=== PATIENT | male | born 1945 | race Caucasian/White ===

== ENCOUNTER 2016-06-02 19:32 | Inpatient (IN) | payer MEDICARE, OTHER ==
[~2016-06-02] VITALS: Ht 185.4 cm; Wt 79.8 kg
--- NOTE | 2016-06-02 20:20 | NUR ---
Pt brought to bed 5b via private ambulance, dr roca at bedside for exam.
--- NOTE | 2016-06-02 20:21 | NUR ---
pt cleared and ready for transfer to u, floor not ready at this time.
[2016-06-02] MEDS ORDERED: ACETAMINOPHEN 325 MG TABLET PO PRN (21:30)
[2016-06-02] MEDS ORDERED: MAG HYDROX/AL HYDROX/SIMETH 30 ML LIQUID UDC PO PRN (21:30)
[2016-06-02] MEDS ORDERED: CLONAZEPAM 0.5 MG TABLET PO SCH (21:30)
[2016-06-02] MEDS ORDERED: TEMAZEPAM 7.5 MG CAPSULE PO PRN (21:30)
[2016-06-02] MEDS ORDERED: MAGNESIUM HYDROXIDE 30 ML LIQUID UDC PO PRN (21:30)
[2016-06-02 21:40] VITALS: BP 170/98
[2016-06-02] MEDS ORDERED: CLONAZEPAM 0.5 MG TABLET ONE (21:45)
[2016-06-02 22:07] VITALS: BP 155/91
--- NOTE | 2016-06-02 23:28 | NUR ---
appears to be asleep. no distress noted.
--- NOTE | 2016-06-02 23:28 | NUR ---
received to care, on a 5150 for dts/dto, from the emergency room, a homeless gentleman, who presented to [facility], allegedly stating he wanted to , by putting a gun in his mouth, and pulling the trigger. uopn arrival, he was calm and cooperative. denied being suicidal, stating that he was drunk when he made the statements, and didnt mean it.pt contracted for safety. he was very cooperative with interview and questions. PATTI reilly sgiven at 2140 for anxiety. as of 2199, he is watching tv. no distress noted.
[2016-06-03 07:30] VITALS: BP 161/96
[2016-06-03] MEDS: ESCITALOPRAM OXALATE 10 MG TABLET PO SCH (10:44)
[2016-06-03] MEDS: AMLODIPINE 5 MG TABLET PO SCH (13:52)
[2016-06-03 16:00] VITALS: BP 152/87
[2016-06-03] MEDS: CLONAZEPAM 0.5 MG TABLET PO PRN (17:00)
[2016-06-03 20:01] VITALS: BP 140/86
[2016-06-04] MEDS: CLONAZEPAM 0.5 MG TABLET PO PRN ×3 (06:12→19:00)
[2016-06-04 06:44] LABS: BASOPHILS # (AUTO) 0.1 K/uL (0.0-0.2); BASOPHILS % (AUTO) 0.8 % (0.0-2.0); EOSINOPHILS # (AUTO) 0.2 K/uL (0.0-0.7); EOSINOPHILS % (AUTO) 3.5 % (0.0-7.0); HEMATOCRIT 39.6 % (40.0-50.0); HEMOGLOBIN 13.2 g/dL (14.0-18.0); LYMPHOCYTES # (AUTO) 1.7 K/uL (0.8-4.8); LYMPHOCYTES % (AUTO) 24.3 % (20.5-51.5); MEAN CORPUSCULAR HEMOGLOBIN 31.1 uug (27.0-31.0); MEAN CORPUSCULAR HGB CONC 33 g/dL (32.0-37.0); MEAN CORPUSCULAR VOLUME 93.3 fL (82.0-92.0); MONOCYTES # (AUTO) 1.1 K/uL (0.1-1.30); MONOCYTES % (AUTO) 15.7 % (0.0-11.0); NEUTROPHILS # (AUTO) 3.8 K/uL (1.8-8.9); NEUTROPHILS % (AUTO) 55.7 % (38.5-71.5); PLATELET COUNT (AUTO) 215 K/uL (150-450); RED BLOOD CELL COUNT(AUTO) 4.24 MIL/uL (4.70-6.10); RED CELL DISTRIBUTION WIDTH 14.9 % (11.5-14.5); WHITE BLOOD COUNT (AUTO) 6.9 K/uL (4.0-11.2)
[2016-06-04 07:10] LABS: ALBUMIN 3.4 g/dL (3.4-5.0); BILIRUBIN,TOTAL 1.2 mg/dL (0.2-1.0); CALCIUM 9.1 mg/dL (8.5-10.1); CREATININE 0.7 mg/dL (0.6-1.3); PHOSPHOROUS 4.1 mg/dL (2.5-4.9); POTASSIUM 4.2 mmol/L (3.5-5.1); TOTAL PROTEIN, SERUM 8.1 g/dL (6.4-8.2)
[2016-06-04 07:30] VITALS: BP 138/77
[2016-06-04 07:46] LABS: THYROID STIMULATING HORMONE 2.503 mIU/mL (0.358-3.740)
[2016-06-04] MEDS: ESCITALOPRAM OXALATE 10 MG TABLET PO SCH (08:10)
[2016-06-04] MEDS: AMLODIPINE 5 MG TABLET PO SCH (08:10)
[2016-06-04 08:43] LABS: EOSINOPHILS % (MANUAL) 4 % (0-8); LYMPHOCYTES % (MANUAL) 25 % (20-40); MONOCYTES % (MANUAL) 7 % (2-10); NEUTROPHILS % (MANUAL) 64 % (42-75)
[2016-06-04 08:45] LABS: PLATELET ESTIMATE ADEQUATE
[2016-06-04 16:00] VITALS: BP 116/71
[2016-06-04 20:04] VITALS: BP 118/76
[2016-06-05] MEDS: CLONAZEPAM 0.5 MG TABLET PO PRN ×3 (06:03→20:22)
[2016-06-05 07:56] VITALS: BP 122/78
[2016-06-05] MEDS: AMLODIPINE 5 MG TABLET PO SCH (08:42)
[2016-06-05] MEDS ORDERED: ESCITALOPRAM OXALATE 10 MG TABLET PO SCH (09:00)
--- NOTE | 2016-06-05 12:30 | NUR ---
Initial discharge instructions: Pt reported to reside at an apartment in [facility] [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
--- NOTE | 2016-06-05 12:32 | NUR ---
Reviewed psychosocial done by Ed Mast. Addendum: 06/05/16 at 1233 by REHAN CAZARES Amended: Links added.
--- NOTE | 2016-06-05 12:44 | NUR ---
GPS.RN- patient irritable and angry this afternoon, verbalizing he will not stay at the sober living on discharge.
[2016-06-05 16:50] VITALS: BP_SYST 125; BP_SYST 133; BP_DIAS 71; BP_DIAS 80
[2016-06-05 21:30] VITALS: BP 143/72
[2016-06-06] MEDS: CLONAZEPAM 0.5 MG TABLET PO PRN (06:24)
[2016-06-06 07:30] VITALS: BP 134/83
[2016-06-06] MEDS ORDERED: ESCITALOPRAM OXALATE 10 MG TABLET PO SCH (09:00)
[2016-06-06 09:26] VITALS: BP 134/83
[2016-06-06] MEDS: AMLODIPINE 5 MG TABLET PO SCH (09:26)
--- NOTE | 2016-06-06 11:56 | NUR ---
DC Note: Patient will be discharged to the [facility] [[address] [place], [address]] via taxi at 2:00 pm. Patient will be provided with a taxi voucher and $11.50 for a one-way trip ticket. The patient will arrive at the [facility] [[address], [facility], [place] [address]]. Patient stated he would then go to the [facility] [[address] , [place] [address]; ]. Patient stated he has a plan and is resourceful. Patient will not accept placement although this was offered [[facility]] by his CM, Rakel Salguero. Spoke with patient's CM/RN, Rakel Salguero [phone] with the [facility] team who is aware and agreeable with discharge plans. Per Ciara, she spoke with the patient and confirmed he has a plan. Ciara stated the patient has financial means to care for himself. Spoke with patient's friend, Moses [phone] who is aware and agreeable with discharge plans as well. Patient was referred to [facility] [phone], Behavioral Health [phone], and [facility] psychiatric referrals. Patient reported he does not have an assigned PCP and was referred to [facility] , [facility] , [facility] , [facility] . Patient was provided with a brief substance abuse intervention and referred to [facility] , [facility] , and [facility] . The patient will also be provided with homeless resources including the [facility] [phone], [facility] , and [facility] . Patient completed the homeless patient waiver form.
--- NOTE | 2016-06-06 15:04 | NUR ---
GPS: Nursing Notes: Discharge Notes: Patient awake and responding to his name, cooperative and compliant with medications and nursing care, following staff directions, denies any SI/HI, denies any AH/VH, denies any pain or discomfort, denies any SOB, patient refuse to be discharge to [facility] by his CM Rakel Salguero from [facility]. Patient stated he would then go to the [facility] [[address] [place] [id number]; ]. Patient stated he has a plan and is resourceful. Patient will not accept placement although this was offered [[facility]] by his CM, Rakel Salguero. Spoke with patient's CM/RN, Rakel Salguero [phone] with the [facility] team who is aware and agreeable with discharge plans. Per Ciara, she spoke with the patient and confirmed he has a plan. Ciara stated the patient has financial means to care for himself. Spoke with patient's friend, Moses [phone] who is aware and agreeable with discharge plans as well. Patient was referred to [facility] [phone], Behavioral Health [phone], and [facility] psychiatric referrals. Patient reported he does not have an assigned PCP and was referred to [facility] , [facility] , [facility] , [facility] . Patient was provided with a brief substance abuse intervention and referred to [facility] , [facility] , and [facility] . The patient will also be provided with homeless resources including the [facility] [phone], [facility] , and [facility] . Patient completed the homeless patient waiver form.
== END 2016-06-06 15:00 | disposition home or self-care (01) | DRG 885 ==
LOC: ER 19:38 → GPS 20:39
PROVIDERS: ADMIT Psychiatry & Neurology Psychiatry; ATTEND Internal Medicine
DX: F33.2 Major depressive disorder, recurrent severe without psychotic features (principal); R45.851 Suicidal ideations; J44.9 Chronic obstructive pulmonary disease, unspecified; F10.20 Alcohol dependence, uncomplicated; D53.9 Nutritional anemia, unspecified; Z98.1 Arthrodesis status; Z59.0 Homelessness; R74.0 Nonspecific elevation of levels of transaminase and lactic acid dehydrogenase [LDH]; E80.6 Other disorders of bilirubin metabolism; I10 Essential (primary) hypertension; Z90.49 Acquired absence of other specified parts of digestive tract; Z86.19 Personal history of other infectious and parasitic diseases; M19.90 Unspecified osteoarthritis, unspecified site
CPT/HCPCS: 36415; 83735; 84100; 84443; 85025; A4663